=== PATIENT | female | born 1935 | race Caucasian/White ===

== ENCOUNTER 2017-01-24 07:35 | Outpatient (CLI) | payer MEDICARE ==
--- NOTE | 2017-01-23 22:03 | HPF ---
DATE OF PROCEDURE 01/24/2017 (Catheterization). DATE OF SERVICE 12/29/2016 (Office Visit) CHIEF COMPLAINT "My defibrillator battery is running low." HISTORY OF PRESENT ILLNESS Mrs. Kevin is a very pleasant 81-year-old female, well known to me, with longstanding hypertrophic obstructive cardiomyopathy. She had a dual chamber defibrillator in place. Routine check today showed the battery is at elective replacement interval (DENISE) so we discussed with her battery change-out. She reports no new symptoms. She has chronic dyspnea on exertion. She is on oxygen at night per Pulmonary. She has also been diagnosed with chronic lung disease as noted below. She thinks her shortness of breath has gradually been increasing over the past six months to a year. It is not severe but certainly occurs with any activity. She is still able to fix a meal but she can't mop the floor or vacuum. She would get quite winded. She moves up and about in her house and as long as she does that slowly she is okay. If she tries to hurry she gets out of breath easily. She denies lower extremity edema. Denies orthopnea or PND. She has decreased appetite. She has lost 10 pounds over the past six months. She is wearing oxygen at night. She denies chest pain. Denies palpitations or discharge from her defibrillator. REVIEW OF SYSTEMS Ten system review positive for weight loss as per HPI. Denies fever, chills or night sweats. Positive for chronic positional dizziness changing from sitting to standing, associated with vertigo. She has Meniere's disease. Positive for constipation. No hematochezia or melena. No nausea, vomiting or abdominal pain. No dysuria or hematuria. Positive for urinary incontinence. Positive for shingles apparently in the perianal area. She still gets neuropathic pain and burning there. Did not want that area examined today. She has had a thigh and buttocks rash for about two to three weeks now. She is going to see her PCP for further management. Positive for arthritis pain in the shoulder and neck. Negative for current problems with depression or anxiety. Denies bleeding problems, easy bruising, cold or heat intolerance. She still is able to live and take care of herself and do simple things around the house as per HPI above - fixing a meal, doing laundry, etc, but nothing strenuous or at a fast pace. She denies any TIA or stroke-like symptoms. She has vertigo. She has disequilibrium. She has to pay attention. This is chronic. Has not had any falls. No seizure, headaches or syncope. No firing from her defibrillator. FAMILY HISTORY Negative. SOCIAL HISTORY Does not smoke cigarettes or drink alcohol. She is an artist. . PAST MEDICAL HISTORY HOCUM with diastolic CHF. Hypertension. Pulmonary hypertension. Pulmonary nodule. 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 Dyslipidemia. GERD. PAST SURGICAL HISTORY See H&P from ER 11/2016 and previous records. 1. From a cardiac standpoint, she originally underwent a dual chamber permanent pacemaker implant in or about 2007 and subsequently underwent an upgrade to a defibrillator. 2. About four years ago she underwent addition of a new sense-pace lead in an attempt to help her diastolic heart failure. The procedure was done at [facility]. The patient has been offered referral for possible septal alcohol ablation out of town and she declined on multiple occasions. 3. Coronary angiogram in 2007 was unremarkable and subsequently coronary angiogram in August 2016 due to angina and abnormal nuclear scan showed only mild nonocclusive coronary artery disease and hyperdynamic left ventricle, ejection fraction 80%, pulmonary hypertension with PA pressure 57/20 mmHg, PCWP 21 mmHg consistent with compensated heart failure. Last echocardiogram report available to me shows hyperdynamic left ventricle, controlled velocities at the LVOT level - stable findings. Pulmonary hypertension - see operative report. MEDICATIONS Medication list was reviewed in EMR. PHYSICAL EXAM GENERAL: Alert and oriented x 3. Elderly lady who looks in no acute cardiorespiratory distress. VITAL SIGNS: Blood pressure 134/78. Pulse 72 beats per minute/regular. Respirations 16/unlabored. Weight 144 pounds. Height 5'6". HEENT: Normocephalic, atraumatic. NECK: Jugular venous pressure is not elevated. Carotid upstrokes are equal without bruits. Somewhat delayed but forceful carotid upstrokes were identified. CHEST: Clear to auscultation bilaterally. HEART: Regular rate and rhythm. Long grade 2/6 systolic murmur best heard at left upper sternal border down to the left lower sternal border - increased following Valsalva maneuver to a mild degree. I don't hear a mitral regurgitation murmur. ABDOMEN: Soft, nontender, nondistended. Normoactive bowel sounds are present. EXTREMITIES: Peripheral edema is not present. No cyanosis or clubbing. SKIN: Warm, pink and dry. She refused to have her thigh rash and perianal area examined so we went along with that. Her ICD scars are well healed. NEUROLOGIC: Without focal sensorimotor deficits. DIAGNOSTIC DATA As above under Past Medical/Surgical History. Chest x-ray from ER on 11/09/2016 showed moderate cardiomegaly, stable pulmonary vasculature, old rib fractures without acute disease. EKG available to me from November shows sequential AV-paced rhythm. Additional diagnostic data reviewed: CBC unremarkable from October 2015. Chemistry from October 2015 showed BUN 14, creatinine 0.86, normal electrolytes, chloride 97, CO2 37, normal GFR. Chest CT scan from October 2015 showed cardiomegaly, small pericardial effusion, small right pleural effusion, patchy bilateral infiltrate with some nodularity. Followup CT scan was recommended (October 2015 at [facility] Dual chamber ICD shows normal function. No treatment delivered. Battery voltage indicative of elective replacement interval. It should be noted that OptiVol is up. IMPRESSION 1. HOCUM - diastolic congestive heart failure, chronic and compensated, [place] [employer] function class III. 2. Dual chamber ICD in place, programmed with sequential AV-paced rhythm, battery voltage reached DENISE. 3. Mixed chronic lung disease with pulmonary hypertension and nocturnal hypoxemia. DISCUSSION/PLAN 1. Regarding her volume status although her OptiVol is up she is clinically euvolemic and with her underlying HOCUM I elected to leave her medications including her Bumex the same dose. 2. I counseled her on the risks and benefits of battery replacement for her ICD including somewhat increased risk of infection as high as 8%-10% (given her prior cardiac device procedures and upgrade). She agreed to proceed. I am going to have her check with her family practitioner regarding completing treatment of her shingles and finishing her steroid course prior to battery replacement in order to lower the risk of infection. She was also instructed on chlorhexidine bath in the evening before and the morning of surgery. 3. Office visit two weeks following surgery for incision check. Otherwise, four months for office visit regarding her diastolic heart failure. GAMALIEL
[~2017-01-24] VITALS: Ht 167.6 cm; Wt 64.9 kg
[2017-01-24] VITALS (9 sets, daily range): BP systolic 103–152; BP diastolic 54–72; PULSE 60–63; RESP 16–20; TEMP 96.8; O2SAT 93–99; Ht 167.6 cm; Wt 64.9 kg
[~2017-01-24 07:35] MED LIST: ASPI-146 PO; B2/V1TAB PO; BUME1TAB17 PO; DOXE50CA4 PO; FLUT9.9S NS; MAGN400C PO; METO100T5 PO; OMEP20TA11 PO; POLY119P3 PO; POTA-12 PO; SIMV20TA89 PO; VERA360C2 PO
[2017-01-24] MEDS ORDERED: NORMAL SALINE 1,000 ML IV SCH (08:15)
[2017-01-24] MEDS ORDERED: ASPI-557 PO (08:17)
[2017-01-24] MEDS ORDERED: DIPH25TA2 PO (08:17)
[2017-01-24] MEDS ORDERED: CALC1TAB PO (08:17)
[2017-01-24 08:27] LABS: BASOPHILS % (AUTO) 0.4 % (0-2); EOSINOPHILS # (AUTO) 0.2 T/MM3 (0-0.5); EOSINOPHILS % (AUTO) 4.2 % (0-4); HGB - HEMOGLOBIN 14.1 GM/DL (12-16); LYMPHOCYTES # (AUTO) 1.3 T/MM3 (1-4.8); LYMPHOCYTES % (AUTO) 27.1 % (23-45); MEAN CORPUSCULAR HGB 32.3 UUG (26-34); MEAN CORPUSCULAR HGB CONC(MCHC 32.8 GM/DL (31-37); MEAN CORPUSCULAR VOLUME 98.4 UM3 (80-100); MONOCYTES # (AUTO) 0.4 T/MM3 (0-0.8); NEUTROPHILS #(AUTO)-ABSOLUTE 2.8 T/MM3 (1.8-7.7); NEUTROPHILS % (AUTO) 59.3 % (33-66); RED BLOOD COUNT 4.37 M/MM3 (4.00-5.20); WBC - WHITE BLOOD COUNT 4.8 T/MM3 (4.5-11.0)
[2017-01-24 08:37] LABS: ALBUMIN 4.2 G/DL (3.5-5.0); ALBUMIN/GLOBULIN RATIO 1.8 RATIO (1.1-2.2); ALKALINE PHOSPHATASE 68 U/L (38-126); ALT (SGPT) 45 U/L (9-52); ANION GAP 11 MEQ/L (5-15); AST (SGOT) 25 U/L (14-36); BUN/CREATININE RATIO 21 RATIO (6-26); CALCIUM 9.1 MG/DL (8.4-10.2); CHLORIDE 103 MEQ/L (98-107); CO2 - CARBON DIOXIDE 32 MEQ/L (22-30); GLOMERULAR FILTRATION RATE 53; GLUCOSE 98 MG/DL (65-110); POTASSIUM 3.9 MEQ/L (3.6-5); SODIUM 146 MEQ/L (134-144); TOTAL PROTEIN 6.6 G/DL (6.3-8.2)
[2017-01-24] MEDS ORDERED: MIDAZOLAM 2mg/2ml INJECTION ONE (09:03)
[2017-01-24] MEDS ORDERED: LIDOCAINE 1% (10mg/ml) 30ml SDV ONE ×2 (09:03→09:05)
[2017-01-24] MEDS ORDERED: FENTANYL 100mcg/2ml INJECTION ONE (09:03)
[2017-01-24] MEDS ORDERED: BACITRACIN INJ. 50,000 UNITS VL ONE (09:04)
[2017-01-24] MEDS ORDERED: WATER FOR INJECTION ONE (09:04)
[2017-01-24] MEDS ORDERED: SALINE FLUSH 10ml SYRINGE ONE (09:05)
[2017-01-24] MEDS ORDERED: VANCOMYCIN 1,000 MG in NORMAL SALINE 250 ML IV ONE (09:15)
[2017-01-24] MEDS ORDERED: APAP PO PRN (10:45)
[2017-01-24] MEDS ORDERED: BISACODYL 5 MG E.C. TABLET PO PRN (10:45)
[2017-01-24] MEDS ORDERED: FLUTICASONE NASAL SPRAY 50 MCG EA NOSTRIL PRN (10:45)
[2017-01-24] MEDS ORDERED: MAG-AL + SIM LIQUID 30 ML UDC PO PRN (10:45)
[2017-01-24] MEDS ORDERED: CAFFEINE PO PRN (10:45)
[2017-01-24] MEDS ORDERED: ACETAMINOPHEN 325 MG TABLET PO PRN (10:45)
[2017-01-24] MEDS ORDERED: ASA PO PRN (10:45)
[2017-01-24] MEDS ORDERED: OXYCODONE/APAP 5mg/325mg TABLET PO PRN (10:45)
[2017-01-24] MEDS ORDERED: MINO100C43 PO (10:54)
[2017-01-24] MEDS ORDERED: OXYC1TAB8 PO (10:54)
[2017-01-24] MEDS ORDERED: OMEPRAZOLE 20 MG CAPSULE PO SCH (17:00)
[2017-01-24] MEDS ORDERED: BUMETANIDE 1 MG TABLET PO SCH (17:00)
[2017-01-24] MEDS ORDERED: MINOCYCLINE 100 MG CAPSULE PO SCH (18:00)
[2017-01-24] MEDS ORDERED: SIMVASTATIN 10 MG TABLET PO SCH (22:00)
[2017-01-25] MEDS ORDERED: POTASSIUM CHLORIDE 10 MEQ TABLET PO SCH (08:00)
[2017-01-25] MEDS ORDERED: POLYETHYL.GLYCOL 3350 PACKET 17gm PO SCH (09:00)
[2017-01-25] MEDS ORDERED: ASPIRIN *EC* 81mg TABLET PO SCH (09:00)
[2017-01-25] MEDS ORDERED: MAGNESIUM OXIDE 400 MG TABLET PO SCH (09:00)
[2017-01-25] MEDS ORDERED: CALCIUM 600mg + VIT D 400 TABLET PO SCH (09:00)
== END 2017-01-24 13:40 | disposition home or self-care (01) ==
LOC: SRG 07:35 → CATH 07:35
PROVIDERS: ATTEND Internal Medicine Cardiovascular Disease
DX: Z45.02 Encounter for adjustment and management of automatic implantable cardiac defibrillator (principal); I42.1 Obstructive hypertrophic cardiomyopathy; I50.32 Chronic diastolic (congestive) heart failure; I50.1 Left ventricular failure, unspecified; R00.1 Bradycardia, unspecified; I10 Essential (primary) hypertension; I27.2 Other secondary pulmonary hypertension; Z99.81 Dependence on supplemental oxygen; R06.09 Other forms of dyspnea; K59.00 Constipation, unspecified; R32 Unspecified urinary incontinence; J44.9 Chronic obstructive pulmonary disease, unspecified; E78.5 Hyperlipidemia, unspecified; K21.9 Gastro-esophageal reflux disease without esophagitis; G47.36 Sleep related hypoventilation in conditions classified elsewhere; R91.1 Solitary pulmonary nodule; Z79.82 Long term (current) use of aspirin; Z79.899 Other long term (current) drug therapy
CPT/HCPCS: 36415; 80053; 85025; 93005